=== PATIENT | female | born 1955 | race Caucasian/White ===

== ENCOUNTER → 2024-06-05 | Emergency (ER) | payer BC ==
[~2024-06-05] VITALS: Ht 149.9 cm; Wt 59.0 kg
[2024-06-05 13:14] LABS: HEMATOCRIT 43.3 % (36.0-45.00); HEMOGLOBIN 14.5 g/dL (12.0-15.00); MEAN CELL VOLUME 87.9 fL (80.00-100.00); MEAN CORPUSCULAR HEMOGLOBIN 29.4 pg (27.00-32.0); MEAN CORPUSCULAR HGB CONC 33.4 g/dl (32.0-36.0); PLATELET COUNT 206 K/uL (150-450); RED BLOOD COUNT 4.93 M/uL (4.00-6.00); RED CELL DISTRIBUTION WIDTH 14.4 % (11.5-14.5)
== END | disposition home or self-care (01) ==
LOC: ER 11:58
PROVIDERS: General Practice
DX: R53.81 Other malaise (principal); J10.1 Influenza due to other identified influenza virus with other respiratory manifestations; R53.1 Weakness; Z20.822 Contact with and (suspected) exposure to COVID-19